=== PATIENT | male | born 1975 | race Caucasian/White ===

== ENCOUNTER 2016-08-06 19:29 | Emergency (ER) | payer SELFPAY ==
[2016-08-06 19:38] VITALS: TEMP 97.8; BMI 27.8
[2016-08-06 19:57] LABS: ALL NEG? NO
[2016-08-06 19:59] LABS: AUTOMATED BASOPHIL 1.4 % (0-2); AUTOMATED EOSINOPHIL 2.6 % (0-5); AUTOMATED LYMPH 35.4 % (17-44); AUTOMATED MONOCYTE 7.9 % (3-10); AUTOMATED NEUTROPHIL 52.7 % (45-76); MPV 6.6 fL (7.4-10.4)
[2016-08-06 20:17] LABS: BLOOD UREA NITROGEN 15 MG/DL (9-20); CALCIUM 9.1 MG/DL (8.4-10.2); CALCULATED OSMOLALITY 269 MOs/Kg (270-290); CHLORIDE 98 mEq/L (98-107); ETOH-MGDL < 10 mg/dL; GLUCOSE 96 MG/DL (70-99); MDMA* NEG (NEGATIVE); METHAMPHETAMINES NEG (NEGATIVE); OXYCODONE *POSITIVE* (NEGATIVE); SODIUM LEVEL 139 mEq/L (137-146); TOTAL PROTEIN 7.5 G/DL (6.3-8.2)
[2016-08-06 20:21] LABS: AMORPHOUS OCC; LEUKOCYTES/URINE NEG (NEGATIVE); NITRITE/URINE NEG (NEGATIVE); URINE OCCULT BLOOD NEG (NEG/TRACE)
--- NOTE | 2016-08-06 21:49 | EDPRACDOC ---
- General Information Chief Complaint: Patient Requesting Detox Stated Complaint: MEDICAL CLEARENCE Time Seen by Provider: 08/06/16 21:14 Information Source: Patient Home Medications: Home Medications No Home Medications 08/21/13 Allergies/Adverse Reactions: Allergies Allergy/AdvReac Type Severity Reaction Status Date / Time No Known Allergies Allergy Verified 08/21/13 20:38 - History of Present Illness Onset: Today HPI: C/o wanting to detox from opiates. Has bed arranged with detox in [facility], just needs medical clearance for them. Drinking Duration: Denies: Unknown, Hours, Days, Weeks, Months, Intermittently, O Altered Mental Status Duration: Reports: None Location: Denies: Injury, Pain, O Ingested: Reports: Sedatives (opiates) Ingestion: Reports: Unknown Presents For: Reports: Medical Clearance Found: Denies: Unknown, Unconscience, Sleeping, Injury, Altercation, Fall, O Relevant History: Reports: Substance Abuse Altered Mental Status Severity: None Tremors Severity: None Diaphoresis Severity: None Hallucinations Severity: None Associated Signs & Symptoms: Reports: None ED Past Medical History - History Reviewed Yes Nurses notes reviewed and agree except as marked - Patient Medical History Psychological History: Reports: Depression, Anxiety - Social Medical History Smoking Status: Heavy tobacco smoker (5 or more cigarettes/day or daily pipe/ cigar) EDM Review of Systems - Review of Systems ROS Negative Except as Marked: Yes All systems reviewed and were negative except as marked ROS Comments: substance abuse - Physical Exam Constitutional: No apparent distress, Alert Oriented to: Time, Person, Place Last recorded Vital Signs: Last Vital Signs Temp 97.8 F 08/06/16 19:32 Pulse 91 08/06/16 19:32 Resp 18 08/06/16 19:32 BP 161/98 08/06/16 19:32 Pulse Ox 99 08/06/16 19:32 Oxygen Pulse Oxygen Saturation 99 O2 Device Room Air Oxygen Flow Rate Fraction of Inspired Oxygen ( FIO2) - HEENT Head: Normal Eye Exam: negative: Conjunctival Injection, Scleral Icterus Oropharynx: negative: Drooling TMJ: Normal Nose: No Symptoms Reported Neck: Normal - Respiratory/Cardiovascular Respiratory: Normal - CTA Cardiovascular: Normal - GI Tenderness: Non tender - Musculoskeletal Back: Normal Extremities: Normal - Integumentary Skin: Normal - Neurologic Mood Description: Normal Thought: Coherent Perception: Normal Initial Evaluation Apperance: Neat Attitude: Cooperative Mood: Euthymic Affect: Congruent w/ mood Insight: Good Judgement: Good Memory Description: Intact Delusion Description: Reports: Not Present Hallucination Type: Reports: None Hallucinations Severity: Reports: None Recommend /or Refer: Outpatient Therapy - Results 08/06/16 19:41 08/06/16 19:41 WBC 9.2 xk/uL (3.8-10.8) 08/06/16 19:41 RBC 4.68 xM/uL (4.70-6.10) L 08/06/16 19:41 Hgb 14.3 g/dL (14.0-18.0) 08/06/16 19:41 Hct 42.3 % (42-52) 08/06/16 19:41 MCV 90 fL (80-94) 08/06/16 19:41 MCH 30.5 pg (27-32) 08/06/16 19:41 MCHC 33.8 g/dl (33-36) 08/06/16 19:41 RDW 13.8 % (11.5-14.5) 08/06/16 19:41 Plt Count 311 xk/uL (130-400) 08/06/16 19:41 MPV 6.6 fL (7.4-10.4) L 08/06/16 19:41 Neut % (Auto) 52.7 % (45-76) 08/06/16 19:41 Lymph % (Auto) 35.4 % (17-44) 08/06/16 19:41 [place] % (Auto) 7.9 % (3-10) 08/06/16 19:41 Eos % (Auto) 2.6 % (0-5) 08/06/16 19:41 Baso % (Auto) 1.4 % (0-2) 08/06/16 19:41 Absolute Neuts (auto) 4.78 xk/uL (1.7-8.2) 08/06/16 19:41 Absolute Lymphs (auto) 3.22 xk/uL (0.65-4.75) 08/06/16 19:41 Sodium 139 mEq/L (137-146) 08/06/16 19:41 Potassium 4.7 mEq/L (3.5-5.1) 08/06/16 19:41 Chloride 98 mEq/L (98-107) 08/06/16 19:41 Carbon Dioxide 31 mMOL/L (22-33) 08/06/16 19:41 Anion Gap 15 mEq/L (8-16) 08/06/16 19:41 BUN 15 MG/DL (9-20) 08/06/16 19:41 Creatinine 0.90 MG/DL (0.66-1.25) 08/06/16 19:41 Estimated GFR (MDRD) > 60 mL/min (>=60) 08/06/16 19:41 Glucose 96 MG/DL (70-99) 08/06/16 19:41 Calculated Osmolality 269 MOs/Kg (270-290) L 08/06/16 19:41 Calcium 9.1 MG/DL (8.4-10.2) 08/06/16 19:41 Total Bilirubin 0.4 MG/DL (0.2-1.3) 08/06/16 19:41 AST 25 IU/L (17-59) 08/06/16 19:41 ALT 30 IU/L (21-72) 08/06/16 19:41 Alkaline Phosphatase 92 IU/L (38-126) 08/06/16 19:41 Total Protein 7.5 G/DL (6.3-8.2) 08/06/16 19:41 Albumin 4.1 G/DL (3.5-5.0) 08/06/16 19:41 Urine Color Pale yellow 08/06/16 19:41 Urine Clarity Sl cldy 08/06/16 19:41 Urine pH 8.0 (5.0-8.0) 08/06/16 19:41 Ur Specific [place] 1.015 (1.003-1.035) 08/06/16 19:41 Urine Protein Neg (NEG/TRACE) 08/06/16 19:41 Urine Glucose (UA) Neg (NEGATIVE) 08/06/16 19:41 Urine Ketones Neg (NEGATIVE) 08/06/16 19:41 Urine Occult Blood Neg (NEG/TRACE) 08/06/16 19:41 Urine Nitrite Neg (NEGATIVE) 08/06/16 19:41 Urine Bilirubin Neg (NEGATIVE) 08/06/16 19:41 Urine Urobilinogen <2.0 MG/DL (0-1) 08/06/16 19:41 Ur Leukocyte Esterase Neg (NEGATIVE) 08/06/16 19:41 Urine WBC 2-5 (0-2) H 08/06/16 19:41 Amorphous Sediment Occ 08/06/16 19:41 Urine Bacteria Few (NEG/FEW) 08/06/16 19:41 Urine Opiates Screen Neg (NEGATIVE) 08/06/16 19:41 Ur Oxycodone Screen *positive* (NEGATIVE) H 08/06/16 19:41 Urine Methadone Screen Neg (NEGATIVE) 08/06/16 19:41 Ur Barbiturates Screen Neg (NEGATIVE) 08/06/16 19:41 Ur Tricyclics Screen Neg (NEGATIVE) 08/06/16 19:41 Ur Phencyclidine Scrn Neg (NEGATIVE) 08/06/16 19:41 Ur Amphetamines Screen Neg (NEGATIVE) 08/06/16 19:41 U Methamphetamines Scrn Neg (NEGATIVE) 08/06/16 19:41 Urine MDMA Screen Neg (NEGATIVE) 08/06/16 19:41 U Benzodiazepines Scrn *positive* (NEGATIVE) H 08/06/16 19:41 Urine Cocaine Screen Neg (NEGATIVE) 08/06/16 19:41 Ur THC Screen Neg (NEGATIVE) 08/06/16 19:41 Plasma/Serum Ethyl Alc % (<0.01) 08/06/16 19:41 Lab Results 08/06/16 08/06/16 08/06/16 19:41 19:41 19:41 WBC 9.2 RBC 4.68 L Hgb 14.3 Hct 42.3 MCV 90 MCH 30.5 MCHC 33.8 RDW 13.8 Plt Count 311 MPV 6.6 L Neut % (Auto) 52.7 Lymph % (Auto) 35.4 [place] % (Auto) 7.9 Eos % (Auto) 2.6 Baso % (Auto) 1.4 Absolute Neuts (auto) 4.78 Absolute Lymphs (auto) 3.22 Sodium Potassium Chloride Carbon Dioxide Anion Gap BUN Creatinine Estimated GFR (MDRD) Glucose Calculated Osmolality Calcium Total Bilirubin AST ALT Alkaline Phosphatase Total Protein Albumin Urine Color Pale yellow Urine Clarity Sl cldy Urine pH 8.0 Ur Specific [place] 1.015 Urine Protein Neg Urine Glucose (UA) Neg Urine Ketones Neg Urine Occult Blood Neg Urine Nitrite Neg Urine Bilirubin Neg Urine Urobilinogen <2.0 Ur Leukocyte Esterase Neg Urine WBC 2-5 H Amorphous Sediment Occ Urine Bacteria Few Urine Opiates Screen Neg Ur Oxycodone Screen *positive* H Urine Methadone Screen Neg Ur Barbiturates Screen Neg Ur Tricyclics Screen Neg Ur Phencyclidine Scrn Neg Ur Amphetamines Screen Neg U Methamphetamines Scrn Neg Urine MDMA Screen Neg U Benzodiazepines Scrn *positive* H Urine Cocaine Screen Neg Ur THC Screen Neg Plasma/Serum Ethyl Alc 08/06/16 19:41 WBC RBC Hgb Hct MCV MCH MCHC RDW Plt Count MPV Neut % (Auto) Lymph % (Auto) [place] % (Auto) Eos % (Auto) Baso % (Auto) Absolute Neuts (auto) Absolute Lymphs (auto) Sodium 139 Potassium 4.7 Chloride 98 Carbon Dioxide 31 Anion Gap 15 BUN 15 Creatinine 0.90 Estimated GFR (MDRD) > 60 Glucose 96 Calculated Osmolality 269 L Calcium 9.1 Total Bilirubin 0.4 AST 25 ALT 30 Alkaline Phosphatase 92 Total Protein 7.5 Albumin 4.1 Urine Color Urine Clarity Urine pH Ur Specific [place] Urine Protein Urine Glucose (UA) Urine Ketones Urine Occult Blood Urine Nitrite Urine Bilirubin Urine Urobilinogen Ur Leukocyte Esterase Urine WBC Amorphous Sediment Urine Bacteria Urine Opiates Screen Ur Oxycodone Screen Urine Methadone Screen Ur Barbiturates Screen Ur Tricyclics Screen Ur Phencyclidine Scrn Ur Amphetamines Screen U Methamphetamines Scrn Urine MDMA Screen U Benzodiazepines Scrn Urine Cocaine Screen Ur THC Screen Plasma/Serum Ethyl Alc Decision Time to Discharge: 21:49 - Departure Disposition: Home Condition: Stable Final Diagnosis: medical clearance for detox program Instructions: Narcotic Abuse (ED) Education/Counseling Given To: Patient Education/Counseling Given Regarding: Diagnosis, Treatment, Prognosis, Follow Up Referrals: None,No Provider [Primary Care Provider] - One Week Additional Instructions: Pt states he has bed arranged with [facility] for detox. Medical clearance will be faxed to [email or web address].
[2016-08-06 22:04] VITALS: BP 160/98; PULSE 96
== END 2016-08-06 22:01 | disposition home or self-care (01) ==
LOC: ED 19:29
DX: F11.10 Opioid abuse, uncomplicated (principal)
CPT/HCPCS: 36415; 80053; 80307; 81001; 85025; 86592; 99283